=== PATIENT | male | born 1985 | race Caucasian/White ===

== ENCOUNTER 2020-04-30 23:53 | Emergency (ER) | payer OTHER ==
--- NOTE | 2020-05-01 00:35 | EDM.PDOC ---
ED HPI GENERAL MEDICAL PROBLEM - General Chief Complaint: Abdominal Pain Stated Complaint: NandV Time Seen by Provider: 05/01/20 01:00 Source of Information: Reports: Patient - History of Present Illness INITIAL COMMENTS - FREE TEXT/NARRATIVE: 34 year old male known patient of traumatic brain injury presented to ER with abd pain & vomiting started this morning while he was doing fishing at the [place] .The patient was brought by ambulance & he was crying & irritable when he came in.The pain is located in epigastric & right upper quadrant .The pain is 10/10,sharp ,no radiating .The patient is vomiting through out the day . [place] with friends denies fever ,shortness of breath ,headache ,wheezing ,cough ,any diarrhea, urinary complain Duration: Hour(s):, Day(s): (1) Location: Reports: Abdomen Quality: Reports: Sharp Improves with: Reports: None, Eating Worsens with: Reports: None - Related Data Allergies Allergy/AdvReac Type Severity Reaction Status Date / Time No Known Allergies Allergy Verified 05/01/20 06:06 Social & Family History - Recreational Drug Use Recreational Drug Type: Reports: Marijuana/Hashish ED ROS GENERAL - Review of Systems Review Of Systems: See Below Constitutional: Reports: No Symptoms HEENT: Reports: No Symptoms Respiratory: Reports: No Symptoms, Shortness of Breath, Wheezing Cardiovascular: Reports: No Symptoms, Chest Pain, Edema, Lightheadedness GI/Abdominal: Reports: No Symptoms, Abdominal Pain, Nausea, Vomiting Musculoskeletal: Reports: No Symptoms, Other (carmona red colour of skin ) Skin: Reports: No Symptoms ED EXAM, GENERAL - Physical Exam Exam: See Below Exam Limited By: No Limitations General Appearance: Alert, WD/WN, No Apparent Distress Head: Atraumatic, Normocephalic Respiratory/Chest: No Respiratory Distress, Lungs Clear, Normal Breath Sounds, No Accessory Muscle Use, Rhonchi, Other (chesrry red colour of skin ) Course - Vital Signs Text/Narrative:: 34 year old male came with abd pain /Vomiting Vitals recorded labs ordered EKG done that shows normal sinus rhythm I/V line started & bolus of 1000 ml saline given zofran 4 mg i/v push Gi cocktail given Patient had elevated corboxyHB -2liters of O2 started - symptoms start improving Pt discharge in stable conditions To make sure the safety of people ,police was informed CO detector was placed in [place] urine shows positive marijuana. COHB level at arrival -4ng patient saturation was 98 % at discharge . Disposition- -home medication -none Last Recorded V/S: Last Vital Signs Temp 97.9 F 04/30/20 23:53 Pulse 88 05/01/20 01:00 Resp 18 05/01/20 01:00 BP 124/88 05/01/20 01:00 Pulse Ox 98 05/01/20 01:00 - Orders/Labs/Meds Orders: Active Orders 24 hr Category Date Time Status Abdomen Pelvis wo Cont [CT] Stat Exams 05/01/20 01:00 Taken Chest 1V Frontal [CR] Stat Exams 04/30/20 23:59 Taken Labs: Laboratory Tests 05/01/20 05/01/20 05/01/20 Range/Units 00:05 00:05 00:05 WBC 14.6 H (4.0-11.0) K/uL RBC 5.26 (4.50-6.50) M/uL Hgb 15.7 (13.0-18.0) g/dL Hct 45.4 (40.0-54.0) % MCV 86 (76-96) fL MCH 29.8 (27.0-32.0) pg MCHC 34.6 (31.0-35.0) g/dL RDW 13.6 (11.0-16.0) % Plt Count 374 (150-400) K/uL MPV 9.2 (6.0-10.0) fL Neut % (Auto) 87.1 H (45.0-70.0) % Lymph % (Auto) 8.1 L (20.0-40.0) % Haskell % (Auto) 4.6 (3.0-10.0) % Eos % (Auto) 0.1 L (1.0-5.0) % Baso % (Auto) 0.1 (0.0-0.5) % Neut # (Auto) 12.73 H (2.00-7.50) K/uL Lymph # (Auto) 1.19 L (1.50-4.00) K/uL Haskell # (Auto) 0.67 (0.20-0.80) K/uL Eos # (Auto) 0.01 L (0.04-0.40) K/uL Baso # (Auto) 0.02 (0.02-0.10) K/uL POC Cap COHB HHb Patricio (0.5-1.5) %COHb Sodium 141 (136-145) mmol/L Potassium 4.3 (3.5-5.1) mmol/L Chloride 104 (98-107) mmol/L Carbon Dioxide 26.0 (21.0-32.0) mmol/L Anion Gap 15.3 H (5.0-15.0) mmol/L BUN 16 (8-26) mg/dL Creatinine 1.20 (0.70-1.30) mg/dL Est Cr Clr Drug Dosing TNP Estimated GFR (MDRD) > 60 (>60) MLS/MIN BUN/Creatinine Ratio 13.3 (6-25) Glucose 131 H (74-100) mg/dL Calcium 9.3 (8.5-10.1) mg/dL Total Bilirubin 0.4 (0.0-1.0) mg/dL AST 20 (15-37) U/L ALT 43 (12-78) U/L Alkaline Phosphatase 170 H (46-116) U/L Troponin I < 0.017 (0.000-0.060) ng/mL Total Protein 8.4 H (6.4-8.2) g/dL Albumin 4.2 (3.4-5.0) g/dL Globulin 4.2 (2.2-4.2) g/dL Albumin/Globulin Ratio 1.0 (0.8-2.0) Lipase 81 (73-393) U/L Urine Opiates Screen (NEGATIVE) Ur Oxycodone Screen (NEGATIVE) Urine Methadone Screen (NEGATIVE) Ur Barbiturates Screen (NEGATIVE) Ur Tricyclics Screen (NEGATIVE) Ur Phencyclidine Scrn (NEGATIVE) Ur Amphetamine Screen (NEGATIVE) U Methamphetamines Scrn (NEGATIVE) Urine MDMA Screen (NEGATIVE) U Benzodiazepines Scrn (NEGATIVE) U Cocaine Metab Screen (NEGATIVE) U Marijuana (THC) Screen (NEGATIVE) 05/01/20 05/01/20 05/01/20 Range/Units 00:15 01:15 01:25 WBC (4.0-11.0) K/uL RBC (4.50-6.50) M/uL Hgb (13.0-18.0) g/dL Hct (40.0-54.0) % MCV (76-96) fL MCH (27.0-32.0) pg MCHC (31.0-35.0) g/dL RDW (11.0-16.0) % Plt Count (150-400) K/uL MPV (6.0-10.0) fL Neut % (Auto) (45.0-70.0) % Lymph % (Auto) (20.0-40.0) % Haskell % (Auto) (3.0-10.0) % Eos % (Auto) (1.0-5.0) % Baso % (Auto) (0.0-0.5) % Neut # (Auto) (2.00-7.50) K/uL Lymph # (Auto) (1.50-4.00) K/uL Haskell # (Auto) (0.20-0.80) K/uL Eos # (Auto) (0.04-0.40) K/uL Baso # (Auto) (0.02-0.10) K/uL POC Cap COHB HHb Patricio 6.0 H 4.0 H D (0.5-1.5) %COHb Sodium (136-145) mmol/L Potassium (3.5-5.1) mmol/L Chloride (98-107) mmol/L Carbon Dioxide (21.0-32.0) mmol/L Anion Gap (5.0-15.0) mmol/L BUN (8-26) mg/dL Creatinine (0.70-1.30) mg/dL Est Cr Clr Drug Dosing Estimated GFR (MDRD) (>60) MLS/MIN BUN/Creatinine Ratio (6-25) Glucose (74-100) mg/dL Calcium (8.5-10.1) mg/dL Total Bilirubin (0.0-1.0) mg/dL AST (15-37) U/L ALT (12-78) U/L Alkaline Phosphatase (46-116) U/L Troponin I (0.000-0.060) ng/mL Total Protein (6.4-8.2) g/dL Albumin (3.4-5.0) g/dL Globulin (2.2-4.2) g/dL Albumin/Globulin Ratio (0.8-2.0) Lipase (73-393) U/L Urine Opiates Screen Negative (NEGATIVE) Ur Oxycodone Screen Negative (NEGATIVE) Urine Methadone Screen Negative (NEGATIVE) Ur Barbiturates Screen Negative (NEGATIVE) Ur Tricyclics Screen Negative (NEGATIVE) Ur Phencyclidine Scrn Negative (NEGATIVE) Ur Amphetamine Screen Negative (NEGATIVE) U Methamphetamines Scrn Negative (NEGATIVE) Urine MDMA Screen Negative (NEGATIVE) U Benzodiazepines Scrn Negative (NEGATIVE) U Cocaine Metab Screen Negative (NEGATIVE) U Marijuana (THC) Screen Positive H (NEGATIVE) Meds: Medications Discontinued Medications Generic Name Dose Route Start Last Admin Trade Name Freq PRN Reason Stop Dose Admin Al Hydroxide/Mg Hydroxide 30 ml 05/01/20 00:41 05/01/20 06:24 Gi Cocktail PO 05/01/20 00:42 Not Given ONETIME ONE Sodium Chloride 1,000 mls @ 999 mls/min 05/01/20 00:37 05/01/20 01:35 Normal Saline IV 05/01/20 00:38 Infused .BOLUS ONE Infusion Ondansetron HCl 4 mg 05/01/20 00:42 05/01/20 01:35 Zofran IVPUSH 4 mg Q4H PRN Administration Nausea/Vomiting Departure - Departure Time of Disposition: 23:15 Disposition: Home, Self-Care 01 Clinical Impression: Abdominal pain in male, Vomiting, Toxic effect of carbon monoxide from other source, undetermined, initial encounter - Discharge Information *PRESCRIPTION DRUG MONITORING PROGRAM REVIEWED*: No *COPY OF PRESCRIPTION DRUG MONITORING REPORT IN PATIENT MARGARITA: No Additional Instructions: Follow up with your regular MD as need. Avoid Carbon Monoxide fresh air as much as possible. Sepsis Event Note (ED) - Focused Exam Vital Signs: Vital Signs Temp Pulse Resp BP Pulse Ox 05/01/20 01:00 88 18 124/88 98 05/01/20 00:30 93 18 125/78 96 05/01/20 00:15 93 18 124/77 94 L 04/30/20 23:53 97.9 F 94 20 130/80 94 L - Problem List & Annotations (1) Abdominal pain in male SNOMED Code(s): 66871275, 050741321 Code(s): R10.9 - UNSPECIFIED ABDOMINAL PAIN Status: Acute Priority: Medium Onset Date: ~05/01/20 (2) Exposure to carbon monoxide SNOMED Code(s): 99815484 Code(s): Z77.29 - CONTACT WITH AND EXPOSURE TO OTHER HAZARDOUS SUBSTANCES Status: Acute Priority: Medium Onset Date: ~05/01/20 (3) Vomiting SNOMED Code(s): 396713302 Code(s): R11.10 - VOMITING, UNSPECIFIED Status: Acute - My Orders Last 24 Hours: My Active Orders 04/30/20 23:59 Chest 1V Frontal [CR] Stat 05/01/20 01:00 Abdomen Pelvis wo Cont [CT] Stat - Assessment/Plan Last 24 Hours: My Active Orders 04/30/20 23:59 Chest 1V Frontal [CR] Stat 05/01/20 01:00 Abdomen Pelvis wo Cont [CT] Stat Plan: Discharge home Education material regarding carbon monoxide poisoning [place] monoxide [place] F/U with PCP Safety of other in [place] ensured
[2020-05-01] MEDS ORDERED: Sodium Chloride 0.9% 1,000 ML IV ONE (00:37)
[2020-05-01] MEDS ORDERED: GI Cocktail Oral Solution 30 ML PO ONE (00:41)
[2020-05-01] MEDS ORDERED: Ondansetron 4 MG/2 ML SDV IVPUSH PRN (00:42)
--- NOTE | 2020-05-01 09:24 | CT ---
Date of Service: 05/01/20 Clinical Data: nausea and vomiting UNENHANCED ABDOMEN AND PELVIC CT: Multislice acquisition through the abdomen and pelvis without IV or oral contrast was performed. No priors. There are mild atelectatic changes in both lung bases. The lung bases are otherwise clear. The heart size is normal. The unenhanced liver appears normal. No focal hepatic lesions. The gallbladder appears normal. No calcified gallstones. The spleen appears normal. The pancreas appears normal. The right and left adrenals appear normal. There is a small nonobstructive renal calculi on the right. The right and left kidneys otherwise appear normal. No hydronephrosis or hydroureter. The bladder is partially fluid-filled. It appears normal. The appendix is not dilated. No evidence of appendicitis. There is subtle fatty infiltration of the wall of the colon suggesting the possibility of inflammatory bowel disease. No dilated loops of bowel. No free air. No free fluid. No adenopathy. No aortic aneurysm. No osseous abnormalities. There is a small fat-containing umbilical hernia. [id number] [facility]
--- NOTE | 2020-05-01 09:28 | CR ---
DATE OF SERVICE: 04/30/20 CLINICAL DATA: chest pain AP CHEST: The heart size is normal. The lungs are clear. No pneumothorax. No pleural effusions. No evidence of acute intrathoracic disease. [id number] [facility]
== END 2020-05-01 01:45 | disposition home or self-care (01) ==
LOC: LB.ED 23:53
DX: T58.8X4A Toxic effect of carbon monoxide from other source, undetermined, initial encounter (principal); R10.11 Right upper quadrant pain; R10.13 Epigastric pain; R11.10 Vomiting, unspecified; F17.200 Nicotine dependence, unspecified, uncomplicated
CPT/HCPCS: 36415; 71045; 74176; 80053; 80307; 83690; 84484; 85025; 88740; 93005; 96374; 99284; 99285-25; A0425; A0429; J2405; J7030